=== PATIENT | male | born 1980 | race Caucasian/White ===

== ENCOUNTER 2021-09-10 14:07 | Emergency (ER) | payer MEDICAID, SELFPAY ==
[2021-09-10 15:00] VITALS: BP 137/81; PULSE 105; RESP 16; TEMP 36.4; O2SAT 100
--- NOTE | 2021-09-10 15:31 | XR_ITS ---
WS: [id number] XR chest 1V portable [id number] REASON FOR EXAM: dyspnea/cough FINDINGS: The heart and mediastinum are within normal limits. Calcified granulomatous disease in both hemithoraces. Minimal reticular and linear opacities in the left lower lung which appear to be chronic and unchange d compared to 12/21/2013. No definite acute pulmonary parenchymal or pleural abnormality. The bony thorax is intact. XR/XR chest 1V portable [id number] IMPRESSION: No acute chest abnormality.
--- NOTE | 2021-09-10 15:40 | ED_ITS ---
Documented by User: Rl De La Garza DO 09/21/21 07:21 HPI - Chest Pain General: Chief Complaint: Chest Pain Stated Complaint: CHEST PAIN Time Seen by Provider: 09/10/21 14:41 History of Present Illness: HPI narrative: 41-year-old male presents emergency room complaining of rapid heart rate. Patient has a history of SVT previously had an ablation. Today states he began feeling a rapid heart rate reported his heart rate up to 140s it resolved spontaneously. He was given aspirin nitro and Zofran at the clinic. He denies any chest pain at this time states he had some chest discomfort describes like a buzzing sensation in his chest. There is no shortness of breath no radiation no nausea or vomiting. Not recently been ill. MD complaint: chest discomfort Pertinent past history: other (SVT) Onset (ago): hour(s) Timing of current episode: episodic Prior episodes: Yes Onset: during rest Pain location: left chest Pain radiation: none Quality: dull Relieving factors: nothing Exacerbating factors: nothing Associated symptoms: Deny abdominal pain, diaphoresis, dyspnea, fever(s), leg ed fiorella, nausea, palpitations, sense of impending doom, syncope or vomiting Treatment prior to arrival: none Review of Systems Const: Denies: fever(s) or diaphoresis ENMT: Denies: throat pain, ear or mastoid pain, nasal discharge or nasal congestion Card: Denies: palpitations or syncope Resp: Denies: dyspnea GI: Denies: abdominal pain, nausea or vomiting : Denies: flank pain, dysuria, urinary frequency or urinary urgency Skin/Breast: Denies: rash or pruritus PFS ED PFSH: Medical History (Updated 09/18/21 @ 00:00 by ) PSVT (paroxysmal supraventricular tachycardia) Surgical History (Updated 09/10/21 @ 15:44 by Rl De La Garza DO) S/P ablation of accessory bypass tract Physical Exam Const: COMMON NORMALS: no acute distress GENERAL APPEARANCE: cooperative and comfortable ORIENTATION/CONSCIOUSNESS: Yes awake, Yes oriented to person, Yes oriented to place and Yes oriented to time HENMT: COMMON NORMALS: normocephalic, atraumatic and hearing grossly normal bilaterally HEAD & SCALP: normocephalic and atraumatic Neck/C-Spine: COMMON NORMALS: no JVD Resp: COMMON NORMALS: normal respiratory effort, No retractions, No use of accessory muscles and clear to auscultation bilaterally AUSCULTATION: clear to auscultation bilaterally Cardio: COMMON NORMALS: no JVD, regular rate, regular rhythm and No murmurs present (Cardio) RATE: regular rate RHYTHM: regular rhythm GI: COMMON NORMALS: Soft to palpation and No hepatosplenomegaly present AUSCULTATION: Yes normoactive bowel sounds PALPATION: Yes Soft to palpation, No Tenderness to palpation present (GI), No Guarding due to palpation present (GI) and Yes No hepatosplenomegaly present Extremity: COMMON NORMALS: normal to inspection, capillary refill normal, no clubbing, cyanosis or edema, no calf tenderness and no pedal edema Neuro: SENSORIUM/ORIENTATION: Yes oriented to person, Yes oriented to place and Yes oriented to time Skin: COMMON NORMALS: no rashes or lesions noted GENERAL SKIN EXAM: no rashes or lesions noted Course Vital Signs: Vital signs: Vital Signs Temperature 97.6 F 09/10/21 15:00 Pulse Rate 100 09/10/21 19:36 Respiratory Rate 17 09/10/21 19:10 Blood Pressure 161/113 09/10/21 19:10 Pulse Oximetry 100 09/10/21 19:36 MDM - Chest Pain MDM Narrative Medical decision making narrative: Turned over to Dr. Almaraz at change of shift. Medical Records Attestation: I reviewed the patient's medical records. Lab Data Attestation: I reviewed the patient's lab results. Result diagrams: 09/10/21 16:11 09/10/21 16:11 Labs: Lab Results 09/10/21 09/10/21 09/10/21 16:11 16:11 16:11 WBC 14.9 10^3/uL H 10^3/uL (4.0-10.0) RBC 5.20 10^6/uL 10^6/uL (4.1-5.3) Hgb 15.8 g/dL g/dL (11.7-16.6) Hct 43.5 % % (42.0-52.0) MCV 83.7 fl fl (80-94) MCH 30.4 pg pg (28.0-34.0) MCHC 36.3 g/dL H g/dL (30.0-36.0) RDW 11.5 % L % (12.1-15.1) Plt Count 208 10^3/cmm 10^3/cmm (130-400) MPV 9.7 fL fL (7.4-10.4) Neut % (Auto) 81.1 % % Lymph % (Auto) 9.6 % % [place] % (Auto) 8.1 % % Eos % (Auto) 0.5 % % Baso % (Auto) 0.2 % % Neut # (Auto) 12.05 10^3/uL H 10^3/uL (1.8-7.7) Lymph # (Auto) 1.4 10^3/uL 10^3/uL (0.8-4.8) [place] # (Auto) 1.2 10^3/uL H 10^3/uL (0.2-0.9) Eos # (Auto) 0.1 10^3/uL 10^3/uL (0.0-0.8) Baso # (Auto) 0.0 10^3/uL 10^3/uL (0.0-0.1) Nucleated RBC % (auto) 0 % % Nucleated RBCs # 0.0 /100WBC /100WBC Sodium 140 mmol/L mmol/L (136-145) Potassium 3.5 mmol/L mmol/L (3.5-5.1) Chloride 102 mmol/L mmol/L (98-107) Carbon Dioxide 21 mmol/L L mmol/L (22-29) Anion Gap 20.5 H (5-19) BUN 14 mg/dL mg/dL (6-20) Creatinine 0.8 mg/dL mg/dL (0.7-1.2) GFR Calculation 106.5 mL/min mL/min (90-130) Glucose 91 mg/dL mg/dL (65-115) Calculated Osmolality 290 mOsm/kg mOsm/kg (285-295) Calcium 9.0 mg/dL mg/dL (8.5-10.5) Total Bilirubin 0.7 mg/dL mg/dL (0.15-1.2) AST 21 U/L U/L (0-40) ALT 29 U/L U/L (0-41) Alkaline Phosphatase 61 IU/L IU/L (40-130) Troponin T Baseline 8 ng/L ng/L (0-15) Troponin T 120 Minute Delta Troponin T Total Protein 7.0 g/dL g/dL (6.6-8.7) Albumin 4.9 g/dL g/dL (3.5-5.2) Globulin 2.1 g/dL g/dL (1.3-4.6) 09/10/21 18:20 WBC RBC Hgb Hct MCV MCH MCHC RDW Plt Count MPV Neut % (Auto) Lymph % (Auto) [place] % (Auto) Eos % (Auto) Baso % (Auto) Neut # (Auto) Lymph # (Auto) [place] # (Auto) Eos # (Auto) Baso # (Auto) Nucleated RBC % (auto) Nucleated RBCs # Sodium Potassium Chloride Carbon Dioxide Anion Gap BUN Creatinine GFR Calculation Glucose Calculated Osmolality Calcium Total Bilirubin AST ALT Alkaline Phosphatase Troponin T Baseline Troponin T 120 Minute 7.10 ng/L ng/L (0-15) Delta Troponin T -0.90 ABS# L ABS# (0-10) Total Protein Albumin Globulin Discharge Plan Discharge Patient Disposition: Home Clinical Impression: Hypertension Chest pain Qualifiers: Chest pain type: unspecified Qualified Code(s): R07.9 - Chest pain, unspecified Condition: Stable Prescriptions: New metoprolol succinate 25 mg tablet extended release 24 hr 25 mg PO DAILY Qty: 30 0RF No Action aspirin 325 mg tablet 325 mg PO ONCE Qty: 1 0RF nitroglycerin [Nitrostat] 0.4 mg tablet, sublingual 0.4 mg sublingual ONCE Qty: 1 0RF Discharge Orders: Discharge ED (Routine); Ordered 09/10/21 Ordered By: Liliam Almaraz Discharge Diet: Advance as tolerated Discharge Activity: Resume usual activity Patient Instructions: Chest Pain (ED) Coding Level of Care Code ED Sample Puller for Chg Fwd Exam Comprehensive Documented by User: Liliam Almaraz MD 09/10/21 19:43 HPI - Chest Pain General: Chief Complaint: Chest Pain Stated Complaint: CHEST PAIN Time Seen by Provider: 09/10/21 14:41 PFSH ED PFSH: Medical History (Updated 09/18/21 @ 00:00 by ) PSVT (paroxysmal supraventricular tachycardia) Surgical History (Updated 09/10/21 @ 15:44 by Rl De La Garza DO) S/P ablation of accessory bypass tract Course Vital Signs: Vital signs: Vital Signs Temperature 97.6 F 09/10/21 15:00 Pulse Rate 100 09/10/21 19:36 Respiratory Rate 17 09/10/21 19:10 Blood Pressure 161/113 09/10/21 19:10 Pulse Oximetry 100 09/10/21 19:36 MDM - Chest Pain MDM Narrative Medical decision making narrative: Patient presents for chest pain that is atypical in nature pains improved his initial and repeat troponins here are normal he has been hypertensive we will start him on metoprolol have him monitor his blood pressure and have him follow- up with his PCP and 4 to 5 days he is to return if worsening he understands agrees to plan. Lab Data Result diagrams: 09/10/21 16:11 09/10/21 16:11 Labs: Lab Results 09/10/21 09/10/21 09/10/21 16:11 16:11 16:11 WBC 14.9 10^3/uL H 10^3/uL (4.0-10.0) RBC 5.20 10^6/uL 10^6/uL (4.1-5.3) Hgb 15.8 g/dL g/dL (11.7-16.6) Hct 43.5 % % (42.0-52.0) MCV 83.7 fl fl (80-94) MCH 30.4 pg pg (28.0-34.0) MCHC 36.3 g/dL H g/dL (30.0-36.0) RDW 11.5 % L % (12.1-15.1) Plt Count 208 10^3/cmm 10^3/cmm (130-400) MPV 9.7 fL fL (7.4-10.4) Neut % (Auto) 81.1 % % Lymph % (Auto) 9.6 % % [place] % (Auto) 8.1 % % Eos % (Auto) 0.5 % % Baso % (Auto) 0.2 % % Neut # (Auto) 12.05 10^3/uL H 10^3/uL (1.8-7.7) Lymph # (Auto) 1.4 10^3/uL 10^3/uL (0.8-4.8) [place] # (Auto) 1.2 10^3/uL H 10^3/uL (0.2-0.9) Eos # (Auto) 0.1 10^3/uL 10^3/uL (0.0-0.8) Baso # (Auto) 0.0 10^3/uL 10^3/uL (0.0-0.1) Nucleated RBC % (auto) 0 % % Nucleated RBCs # 0.0 /100WBC /100WBC Sodium 140 mmol/L mmol/L (136-145) Potassium 3.5 mmol/L mmol/L (3.5-5.1) Chloride 102 mmol/L mmol/L (98-107) Carbon Dioxide 21 mmol/L L mmol/L (22-29) Anion Gap 20.5 H (5-19) BUN 14 mg/dL mg/dL (6-20) Creatinine 0.8 mg/dL mg/dL (0.7-1.2) GFR Calculation 106.5 mL/min mL/min (90-130) Glucose 91 mg/dL mg/dL (65-115) Calculated Osmolality 290 mOsm/kg mOsm/kg (285-295) Calcium 9.0 mg/dL mg/dL (8.5-10.5) Total Bilirubin 0.7 mg/dL mg/dL (0.15-1.2) AST 21 U/L U/L (0-40) ALT 29 U/L U/L (0-41) Alkaline Phosphatase 61 IU/L IU/L (40-130) Troponin T Baseline 8 ng/L ng/L (0-15) Troponin T 120 Minute Delta Troponin T Total Protein 7.0 g/dL g/dL (6.6-8.7) Albumin 4.9 g/dL g/dL (3.5-5.2) Globulin 2.1 g/dL g/dL (1.3-4.6) 09/10/21 18:20 WBC RBC Hgb Hct MCV MCH MCHC RDW Plt Count MPV Neut % (Auto) Lymph % (Auto) [place] % (Auto) Eos % (Auto) Baso % (Auto) Neut # (Auto) Lymph # (Auto) [place] # (Auto) Eos # (Auto) Baso # (Auto) Nucleated RBC % (auto) Nucleated RBCs # Sodium Potassium Chloride Carbon Dioxide Anion Gap BUN Creatinine GFR Calculation Glucose Calculated Osmolality Calcium Total Bilirubin AST ALT Alkaline Phosphatase Troponin T Baseline Troponin T 120 Minute 7.10 ng/L ng/L (0-15) Delta Troponin T -0.90 ABS# L ABS# (0-10) Total Protein Albumin Globulin Discharge Plan Discharge Patient Disposition: Home Clinical Impression: Hypertension Chest pain Qualifiers: Chest pain type: unspecified Qualified Code(s): R07.9 - Chest pain, unspecified Condition: Stable Prescriptions: New metoprolol succinate 25 mg tablet extended release 24 hr 25 mg PO DAILY Qty: 30 0RF No Action aspirin 325 mg tablet 325 mg PO ONCE Qty: 1 0RF nitroglycerin [Nitrostat] 0.4 mg tablet, sublingual 0.4 mg sublingual ONCE Qty: 1 0RF Discharge Orders: Discharge ED (Routine); Ordered 09/10/21 Ordered By: Liliam Almaraz Discharge Diet: Advance as tolerated Discharge Activity: Resume usual activity Patient Instructions: Chest Pain (ED) Coding Level of Care Code ED Sample Puller for Isabella Fwd Exam Comprehensive
[2021-09-10 16:20] LABS: Basophils % 0.2 %; Eosinophils # 0.1 10^3/uL (0.0-0.8); Eosinophils % 0.5 %; Hematocrit 43.5 % (42.0-52.0); Hemoglobin 15.8 g/dL (11.7-16.6); Lymphocytes # 1.4 10^3/uL (0.8-4.8); Lymphocytes % 9.6 %; Mean Corpuscular HGB Conc 36.3 g/dL (30.0-36.0); Mean Corpuscular Hemoglobin 30.4 pg (28.0-34.0); Mean Corpuscular Volume 83.7 fl (80-94); Mean Platelet Volume 9.7 fL (7.4-10.4); Monocytes # 1.2 10^3/uL (0.2-0.9); Monocytes % 8.1 %; Neutrophils # 12.05 10^3/uL (1.8-7.7); Neutrophils % 81.1 %; Nucleated Red Blood Cells % 0 %; Platelet Count 208 10^3/cmm (130-400); Red Cell Distribution Width 11.5 % (12.1-15.1); White Blood Count 14.9 10^3/uL (4.0-10.0)
[2021-09-10 16:41] LABS: Alanine Aminotransferase 29 U/L (0-41); Albumin Level 4.9 g/dL (3.5-5.2); Alkaline Phosphatase 61 IU/L (40-130); Anion Gap 20.5 (5-19); Aspartate Amino Transferase 21 U/L (0-40); Blood Urea Nitrogen 14 mg/dL (6-20); Carbon Dioxide 21 mmol/L (22-29); Chloride 102 mmol/L (98-107); Globulin 2.1 g/dL (1.3-4.6); Glomerular Filtration Rate 106.5 mL/min (90-130); Glucose 91 mg/dL (65-115); Osmolality Calculated 290 mOsm/kg (285-295); Potassium 3.5 mmol/L (3.5-5.1); Sodium 140 mmol/L (136-145); Total Bilirubin 0.7 mg/dL (0.15-1.2)
[2021-09-10 16:45] LABS: Troponin(5th) Baseline 8 ng/L (0-15)
--- NOTE | 2021-09-10 17:22 | PC.NURSE ---
Continuous cardiac, BP, and SpO2 monitoring initiated upon arrival into room.
[2021-09-10 19:10] VITALS: BP 161/113; PULSE 98; RESP 17; O2SAT 98
[2021-09-10] MEDS: metoprolol succinate ER (24 HR) 25 mg Tablet PO (19:35)
[2021-09-10 19:36] VITALS: PULSE 100; O2SAT 100
--- NOTE | 2021-09-10 21:04 | ECG_ITS ---
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
--- NOTE | 2021-09-22 13:50 | DCPLANNER ---
Addendum entered by Shannan Flores 09/22/21 13:54: completions manager noticed that a primary care physician was not listed on patients chart. completions manager called phone number [phone], was told that this was not the patients phone number. Original Note: completions manager had message to schedule an outpatient stress test for patient. completions manager faxed signed order to centralized scheduling, who will call patient with appointment information.
== END 2021-09-10 19:37 | disposition home or self-care (01) ==
PROVIDERS: Family Medicine; Emergency Provider Emergency Medicine
DX: R07.9 Chest pain, unspecified (principal); I10 Essential (primary) hypertension
CPT/HCPCS: 12345; 36415; 71045; 80053; 84484; 85025; 93005; 99284